=== PATIENT | male | born 1995 | race Caucasian/White ===

== ENCOUNTER 2017-08-10 12:19 | Emergency (ER) | payer MEDICAID, OTHER ==
[~2017-08-10] VITALS: Ht 177.8 cm; Wt 78.8 kg
[2017-08-10 12:33] VITALS: BP 132/75
[2017-08-10] MEDS ORDERED: LITH150C PO (20:47)
[2017-08-10] MEDS ORDERED: OLAN2.5T3 PO (20:47)
[2017-08-10] MEDS ORDERED: LEVE100S6 PO (20:47)
[2017-08-10] MEDS ORDERED: FLUO10CA7 PO (20:47)
[2017-08-11] MEDS ORDERED: FLUO40CA9 PO (10:47)
[2017-08-11] MEDS ORDERED: LITH600C PO (10:47)
[2017-08-11] MEDS ORDERED: OLAN10TA3 PO (10:48)
[2017-08-11] MEDS ORDERED: LEVE500T53 PO (10:48)
== END 2017-08-10 14:50 | disposition left against medical advice (07) ==
LOC: ED 13:00
DX: Z53.21 Procedure and treatment not carried out due to patient leaving prior to being seen by health care provider (principal)

== ENCOUNTER 2017-08-10 20:19 | Observation (INO) | payer MEDICAID, OTHER ==
[~2017-08-10] VITALS: Ht 177.8 cm; Wt 78.0 kg
[2017-08-10] MEDS ORDERED: LEVE100S6 PO (20:47)
[2017-08-10] MEDS ORDERED: LITH150C PO (20:47)
[2017-08-10] MEDS ORDERED: FLUO10CA7 PO (20:47)
[2017-08-10] MEDS ORDERED: OLAN2.5T3 PO (20:47)
[2017-08-10 21:18] LABS: BASOPHILS # (AUTO) 0.04 x10^3/uL (0-0.3); BASOPHILS % (AUTO) 0 % (0-1); EOSINOPHILS # (AUTO) 0.06 x10^3/uL (0-0.8); EOSINOPHILS % (AUTO) 1 % (1-7); LYMPHOCYTES # (AUTO) 2.25 x10^3/uL (1-6.1); LYMPHOCYTES % (AUTO) 19 % (22-44); MD NO; MEAN CORPUSCULAR HEMOGLOBIN 29.7 pg (27.5-34.5); MEAN CORPUSCULAR HGB CONC 33.3 g/dL (33.2-36.2); MEAN CORPUSCULAR VOLUME 89.2 fL (81-97); MEAN PLATELET VOLUME 7.9 fL (7.4-10.4); MONOCYTES % (AUTO) 5 % (2-9); NEUTROPHILS # (AUTO) 8.93 x10^3/uL (1.8-8.0); NEUTROPHILS % (AUTO) 75 % (42-75); PLATELET COUNT 291 x10^3/uL (130-400); RED BLOOD COUNT 5.57 x10^6/uL (4.38-5.82); RED CELL DISTRIBUTION WIDTH 12.9 % (9.4-14.8)
[2017-08-10] MEDS ORDERED: ZIPRASIDONE 20MG CAPSULE ONE (21:26)
[2017-08-10] MEDS ORDERED: ZIPRASIDONE 20 MG INJ IM ONE (21:30)
[2017-08-10 21:33] LABS: ALANINE AMINOTRANSFERASE 21 U/L (12-78); ALBUMIN 4.6 g/dL (3.4-5.0); ANION GAP 7 mmol/L (5-15); CALCIUM 9.1 mg/dL (8.5-10.1); CHLORIDE 107 mmol/L (98-107); CREATININE 1.24 mg/dL (0.7-1.3)
[2017-08-10 21:34] LABS: SALICYLATE LEVEL < 1.7 mg/dL (2.8-20.0)
[2017-08-10 21:35] LABS: ALKALINE PHOSPHATASE 65 U/L (45-117); BILIRUBIN,TOTAL 1.9 mg/dL (0.2-1.0); TOTAL PROTEIN 7.9 g/dL (6.4-8.2)
[2017-08-10 21:36] LABS: ACETAMINOPHEN < 2 mcg/mL (10-30)
[2017-08-10] MEDS ORDERED: ZIPRASIDONE 20MG CAPSULE PO PRN (22:00)
[2017-08-10 23:18] LABS: AMPHETAMINE SCREEN, URINE Negative (Negative); BARBITURATE SCREEN, URINE Negative (Negative); BENZODIAZEPINE SCREEN, URINE Negative (Negative); CANNABINOID SCREEN, URINE Negative (Negative); COCAINE SCREEN, URINE Negative (Negative); METHADONE SCREEN, URINE Negative (Negative); OPIATE SCREEN, URINE Negative (Negative)
[2017-08-11] MEDS ORDERED: ACETAMINOPHEN 325 MG TABLET PO PRN (05:30)
[2017-08-11] MEDS ORDERED: OLANZAPINE 5 MG TABLET PO PRN (05:30)
[2017-08-11] MEDS ORDERED: ONDANSETRON ODT 4 MG PO PRN (05:30)
[2017-08-11] MEDS ORDERED: FLUOXETINE 10 MG CAP PO SCH (09:00)
[2017-08-11] MEDS: LEVETIRACETAM 500 MG TABLET PO SCH ×2 (09:18→21:25)
[2017-08-11 09:25] VITALS: BP 119/63
[2017-08-11] MEDS ORDERED: FLUO40CA9 PO (10:47)
[2017-08-11] MEDS ORDERED: LITH600C PO (10:47)
[2017-08-11] MEDS ORDERED: LEVE500T53 PO (10:48)
[2017-08-11] MEDS ORDERED: OLAN10TA3 PO (10:48)
[2017-08-11 20:00] VITALS: BP 114/70
[2017-08-11] MEDS: OLANZAPINE 10 MG TABLET PO SCH (21:26)
[2017-08-11] MEDS: LITHIUM CARBONATE 300 MG CAPSULE PO SCH (21:26)
[2017-08-12] MEDS: FLUOXETINE HCL 20 MG CAPSULE PO SCH (09:51)
[2017-08-12] MEDS: LEVETIRACETAM 500 MG TABLET PO SCH ×2 (09:51→21:31)
[2017-08-12 10:00] VITALS: BP 126/80
[2017-08-12 20:16] VITALS: BP 114/42
[2017-08-12] MEDS: OLANZAPINE 10 MG TABLET PO SCH (21:31)
[2017-08-12] MEDS: LITHIUM CARBONATE 300 MG CAPSULE PO SCH (21:31)
[2017-08-13] MEDS: FLUOXETINE HCL 20 MG CAPSULE PO SCH (08:19)
[2017-08-13] MEDS: LEVETIRACETAM 500 MG TABLET PO SCH ×2 (08:19→20:47)
[2017-08-13 08:22] VITALS: BP 110/72
[2017-08-13 19:33] VITALS: BP 112/76
[2017-08-13] MEDS: LITHIUM CARBONATE 300 MG CAPSULE PO SCH (20:46)
[2017-08-13] MEDS: OLANZAPINE 10 MG TABLET PO SCH (20:47)
[2017-08-14 07:47] VITALS: BP 120/72
[2017-08-14] MEDS: LEVETIRACETAM 500 MG TABLET PO SCH ×2 (09:09→21:53)
[2017-08-14] MEDS: FLUOXETINE HCL 20 MG CAPSULE PO SCH (09:09)
[2017-08-14 21:51] VITALS: BP 112/67
[2017-08-14] MEDS: OLANZAPINE 10 MG TABLET PO SCH (21:53)
[2017-08-14] MEDS: LITHIUM CARBONATE 300 MG CAPSULE PO SCH (21:53)
[2017-08-15 08:15] VITALS: BP 108/57
[2017-08-15] MEDS: LEVETIRACETAM 500 MG TABLET PO SCH (08:16)
[2017-08-15] MEDS: FLUOXETINE HCL 20 MG CAPSULE PO SCH (08:16)
== END 2017-08-15 11:12 ==
LOC: ED 23:21 → EDIP 08-11 01:24 → 2N 08-11 08:58
PROVIDERS: ADMIT Hospitalist; ATTEND Hospitalist
DX: R45.851 Suicidal ideations (principal); F31.9 Bipolar disorder, unspecified; F90.9 Attention-deficit hyperactivity disorder, unspecified type; G40.909 Epilepsy, unspecified, not intractable, without status epilepticus; Z72.89 Other problems related to lifestyle
CPT/HCPCS: 36415; 80053; 80178; 80307; 80329; 84443; 85025; 99285; G0378; G0480

== ENCOUNTER 2017-11-19 17:40 | Emergency (ER) | payer MEDICAID, OTHER ==
[~2017-11-19] VITALS: Ht 175.3 cm; Wt 82.5 kg
[~2017-11-19 17:40] MED LIST: FLUO10CA7 PO; FLUO40CA9 PO; LEVE100S6 PO; LEVE500T53 PO; LITH150C PO; LITH600C PO; OLAN10TA3 PO; OLAN2.5T3 PO
[2017-11-19 17:42] VITALS: BP 120/61
== END 2017-11-19 18:12 | disposition home or self-care (01) ==
LOC: EDBD 18:06 → ED 18:06
DX: F31.9 Bipolar disorder, unspecified (principal); Z76.0 Encounter for issue of repeat prescription; F43.10 Post-traumatic stress disorder, unspecified; F90.9 Attention-deficit hyperactivity disorder, unspecified type; Z88.0 Allergy status to penicillin
CPT/HCPCS: 82962; 99283

== ENCOUNTER 2019-05-24 14:17 | Emergency (ER) | payer MEDICAID ==
[~2019-05-24] VITALS: Ht 177.8 cm; Wt 87.0 kg
--- NOTE | 2019-05-24 14:22 | NUR ---
No answer to triage x 1.
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
[2019-05-24] MEDS ORDERED: LORazepam 1MG TABLET PO ONE (15:00)
[2019-05-24] MEDS ORDERED: ONDANSETRON ODT 4 MG PO ONE (15:00)
[2019-05-24 15:06] LABS: BASOPHILS % (AUTO) 0 % (0-1); EOSINOPHILS # (AUTO) 0.03 x10^3/uL (0-0.4); EOSINOPHILS % (AUTO) 0 % (1-7); LYMPHOCYTES # (AUTO) 0.85 x10^3/uL (1-3.4); LYMPHOCYTES % (AUTO) 12 % (22-44); MD NO; MEAN CORPUSCULAR HEMOGLOBIN 29.7 pg (27.5-34.5); MEAN CORPUSCULAR HGB CONC 33.1 g/dL (33.2-36.2); MEAN CORPUSCULAR VOLUME 89.8 fL (81-97); MEAN PLATELET VOLUME 7.8 fL (7.4-10.4); MONOCYTES # (AUTO) 0.57 x10^3/uL (0.2-0.8); MONOCYTES % (AUTO) 8 % (2-9); NEUTROPHILS # (AUTO) 5.51 x10^3/uL (1.8-6.8); NEUTROPHILS % (AUTO) 79 % (42-75); PLATELET COUNT 239 x10^3/uL (130-400); RED BLOOD COUNT 5.06 x10^6/uL (4.38-5.82); RED CELL DISTRIBUTION WIDTH 12.3 % (9.4-14.8)
[2019-05-24] MEDS ORDERED: LORazepam 1MG TABLET ONE (15:07)
[2019-05-24] MEDS ORDERED: ONDANSETRON ODT 4 MG ONE (15:07)
[2019-05-24 15:13] LABS: ALBUMIN 4.1 g/dL (3.4-5.0); ANION GAP 6 mmol/L (5-15); CALCIUM 8.4 mg/dL (8.5-10.1); CHLORIDE 106 mmol/L (98-107)
[2019-05-24 15:17] LABS: ALANINE AMINOTRANSFERASE 21 U/L (12-78); ALKALINE PHOSPHATASE 49 U/L (45-117); CREATININE 1.26 mg/dL (0.7-1.3); TOTAL PROTEIN 7.8 g/dL (6.4-8.2)
[2019-05-24 15:47] VITALS: BP 121/76
--- NOTE | 2019-05-24 15:47 | NUR ---
PT REPORTS HE IS "FEELING BETTER". IS RESTING IN BED. WATCHING TV. CALL LIGHT WITHIN REACH
== END 2019-05-24 16:27 | disposition home or self-care (01) ==
LOC: ED 15:01
DX: F41.1 Generalized anxiety disorder (principal); R11.2 Nausea with vomiting, unspecified
CPT/HCPCS: 36415; 71046; 80053; 85025; 93005; 99284; Q0162

== ENCOUNTER 2019-05-31 08:16 | Emergency (ER) | payer MEDICAID ==
[~2019-05-31] VITALS: Ht 177.8 cm; Wt 80.5 kg
[2019-05-31 08:18] VITALS: BP 114/68
[2019-05-31] MEDS ORDERED: CARBAMIDE PEROXIDE EAR DROPS 6.5%, 15ML ONE (08:37)
[2019-05-31] MEDS ORDERED: CARBAMIDE PEROXIDE EAR DROPS 6.5%, 15ML EACH EAR ONE (09:00)
--- NOTE | 2019-05-31 09:27 | NUR ---
TECH IN ROOM TO IRRIGATE EARS.
[2019-05-31] MEDS ORDERED: ALBUTEROL/IPRATROPIUM 2.5MG/0.5MG, 3 ML NPPB SCH (09:30)
--- NOTE | 2019-05-31 10:12 | NUR ---
IN ROOM TO EXPLAIN D/C. PT INQUIRING ABOUT SOME MOTRIN FOR HIS HEADACHE. TO PROVIDER WITH REQUEST. NO ORDERS RECIEVED. PT MADE AWARE MOTRIN CAN BE OBTAINED OVER THE COUNTER.
== END 2019-05-31 10:15 | disposition home or self-care (01) ==
LOC: ED 09:15
DX: H61.23 Impacted cerumen, bilateral (principal); H60.13 Cellulitis of external ear, bilateral
CPT/HCPCS: 69210; 71046; 99284